=== PATIENT | female | born 1945 | race Caucasian/White ===

== ENCOUNTER 2023-08-28 20:19 | Inpatient (IN) ==
[2023-08-28 20:34] VITALS: BMI 24.4
--- NOTE | 2023-08-28 21:01 | DR.GIBLEED ---
HPI Time Seen Time Seen by Provider: 08/28/23 21:00 Primary Care Physician Primary Care Physician: JAZMIN Complaints Chief Complaint:: PATIENT BROUGHT IN TO ED BY SITTER C/O PASSING BLOOD AFTER ENEMA THIS EVENING. PT HAS HX HEMORRHOIDS AND HAS BEEN CONSTIPATED X 1 WEEK. SITTER STATES THEY HAVE TRIED LAXATIVES AND SUPPOSITORIES AND NOTHING HAS RELIEVED SYMPTOMS. PT HAS DEMENTIA AND IS CONFUSED IN TRIAGE. Self Treatment fo Chief Complaint: LAXATIVES, MILK OF MAG, SUPPOSITORY, ENEMA. COVID-19 Coronavirus risk:travel/contact w/high risk person: No Has patient experienced Coronavirus symptoms: No Source History Provided: Guardian and Other Mode of Arrival Mode of Arrival: Ambulatory Timing Onset of Chief Complaint: 08/28/23 Quality Vomitus: Bright Red Blood Stools: Bright Red Blood PMH PMH Past Medical History: Yes Past Medical History: Anemia, Anxiety, Dementia, Depression, Dyslipidemia, GERD, Hypertension, Hyperthyroidism, Kidney Stones and Renal Disease Past Surgical History: Yes Surgical History: Cholecystectomy, Hysterectomy, Ortho Surgery and Other Family History History of Family Medical Conditions: Yes Family Medical History: Diabetes Mellitus and Hypertension Social History Do you use any recreational Drugs:: No Lives With: Sitter Lives Where: Home Travel Risk Coronavirus risk:travel/contact w/high risk person: No Has patient experienced Coronavirus symptoms: No Infectious screening Have you traveled outside the country in the last 6 months?: No Isolation: Standard PE Vital Signs Vitals: Vital Signs Temperature 98.7 F Pulse Rate 74 Pulse Rate 73 Pulse Rate 75 Pulse Rate 77 Pulse Rate 73 Pulse Rate 73 Pulse Rate 72 Pulse Rate 68 Pulse Rate 72 Pulse Rate 69 Pulse Rate 75 Pulse Rate 82 Respiratory Rate 18 Respiratory Rate 18 Respiratory Rate 18 Blood Pressure 93/55 Blood Pressure 100/51 Blood Pressure 102/63 Blood Pressure 104/58 Blood Pressure 107/53 Blood Pressure 95/51 Blood Pressure 107/59 Blood Pressure 109/61 Blood Pressure 101/58 O2 Sat by Pulse Oximetry 97 O2 Sat by Pulse Oximetry 96 O2 Sat by Pulse Oximetry 96 O2 Sat by Pulse Oximetry 96 O2 Sat by Pulse Oximetry 99 O2 Sat by Pulse Oximetry 94 O2 Sat by Pulse Oximetry 97 O2 Sat by Pulse Oximetry 96 O2 Sat by Pulse Oximetry 94 O2 Sat by Pulse Oximetry 97 O2 Sat by Pulse Oximetry 90 O2 Sat by Pulse Oximetry 98 ROR Labs Reviewed 08/31/23 04:25 08/31/23 04:25 Laboratory: 08/28/23 23:20 Stool Stool Culture - Preliminary 08/28/23 23:20 Stool - Final WBC 9.0 X10^3/uL (3.6-10.0) 08/28/23 21:18 RBC 3.89 X10^6/uL (3.5-5.4) 08/28/23 21:18 Hgb 12.5 g/dL (12.0-16.0) 08/28/23 21:18 Hct 36.0 % (36.0-47.0) 08/28/23 21:18 MCV 92.7 fL (80.0-100.0) 08/28/23 21:18 MCH 32.1 pg (27.0-34.0) 08/28/23 21:18 MCHC 34.6 g/dL (33.0-35.0) 08/28/23 21:18 RDW 13.1 % (11.6-16.5) 08/28/23 21:18 Plt Count 171 X10^3/uL (150.0-450.0) 08/28/23 21:18 MPV 9.9 fL (7.4-11.0) 08/28/23 21:18 Neut % (Auto) 78.9 % (42.0-75.0) H 08/28/23 21:18 Lymph % (Auto) 13.2 % (21.0-51.0) L 08/28/23 21:18 [place] % (Auto) 7.2 % (0.0-13.0) 08/28/23 21:18 Eos % (Auto) 0.3 % (0.9-2.9) L 08/28/23 21:18 Baso % (Auto) 0.4 % (0.2-1.0) 08/28/23 21:18 Neut # (Auto) 7.1 x10^3/uL (2.2-4.8) H 08/28/23 21:18 Lymph # (Auto) 1.2 X10^3/uL (1.3-2.9) L 08/28/23 21:18 [place] # (Auto) 0.6 x10^3/uL (0.3-0.8) 08/28/23 21:18 Eos # (Auto) 0.0 x10^3/uL (0.0-0.2) 08/28/23 21:18 Baso # (Auto) 0.0 X10^3/uL (0.0-0.1) 08/28/23 21:18 Absolute Nucleated RBC 0.1 /100WBC 08/28/23 21:18 PT 20.0 SECONDS (11.8-14.3) 08/28/23 21:18 INR Target Range - 08/28/23 21:18 INR 1.74 (0.8-1.3) H 08/28/23 21:18 APTT 35.0 SECONDS (22.9-36.5) 08/28/23 21:18 PTT Comment - 08/28/23 21:18 Sodium 138 mmol/L (136-145) 08/28/23 21:18 Corrected Sodium TNP 08/28/23 21:18 Potassium 3.0 mmol/L (3.5-5.1) L 08/28/23 21:18 Chloride 100 mmol/L (98-107) 08/28/23 21:18 Carbon Dioxide 31.8 mmol/L (21-32) 08/28/23 21:18 BUN 16 mg/dL (7-18) 08/28/23 21:18 Creatinine 0.88 mg/dL (0.55-1.02) 08/28/23 21:18 Est GFR (MDRD) Af Amer > 60 (>60) 08/28/23 21:18 Est GFR (MDRD) Non-Af > 60 (>60) 08/28/23 21:18 Glucose 104 mg/dL (65-99) H 08/28/23 21:18 Calcium 8.6 mg/dL (8.5-10.1) 08/28/23 21:18 Corrected Calcium 9.8 mg/dL (8.5-10.1) 08/28/23 21:18 Total Bilirubin 0.80 mg/dL (0.2-1.0) 08/28/23 21:18 AST 16 Units/L (15-37) 08/28/23 21:18 ALT 15 Units/L (12-78) 08/28/23 21:18 Alkaline Phosphatase 110 Units/L (46-116) 08/28/23 21:18 Total Protein 5.6 g/dL (6.4-8.2) L 08/28/23 21:18 Albumin 2.5 g/dL (3.4-5.0) L 08/28/23 21:18 Globulin 3.1 g/dL (2.5-4.5) 08/28/23 21:18 Albumin/Globulin Ratio 0.8 Ratio (1.1-2.1) L 08/28/23 21:18 Amylase 8 Units/L (25-115) L 08/28/23 21:18 Lipase 39 Units/L (73-393) L 08/28/23 21:18 Specimen Type Catherized urine 08/28/23 22:15 Urine Color [place]ey[place] (YELLOW) 08/28/23 22:15 Urine Appearance Slightly hazy (CLEAR) 08/28/23 22:15 Urine pH 6.0 (5.0 - 8.0) 08/28/23 22:15 Ur Specific [place] 1.020 (1.000-1.030) 08/28/23 22:15 Urine Protein 2+ (NEGATIVE) 08/28/23 22:15 Urine Glucose (UA) Negative (NEGATIVE) 08/28/23 22:15 Urine Ketones Negative (NEGATIVE) 08/28/23 22:15 Urine Blood 5+ (NEGATIVE) 08/28/23 22:15 Urine Nitrite Negative (NEGATIVE) 08/28/23 22:15 Urine Bilirubin Negative (NEGATIVE) 08/28/23 22:15 Urine Urobilinogen Normal (NORMAL) 08/28/23 22:15 Ur Leukocyte Esterase 1+ (NEGATIVE) 08/28/23 22:15 Urine RBC Tntc /HPF (0-3) A 08/28/23 22:15 Urine WBC 0-2 /HPF (0-5) 08/28/23 22:15 Ur Squamous Epith Cells Rare /HPF (NEGATIVE) 08/28/23 22:15 Urine Bacteria Trace /HPF (NEGATIVE) 08/28/23 22:15 Ur Culture Indicated? No/not indicated 08/28/23 22:15 Stl Occult Blood (IFOB) Positive (NEGATIVE) A 08/28/23 23:20 Stool for White Cells Positive (NEGATIVE) A 08/28/23 23:20 Stl C. diff Tox B Gene Positive (NEGATIVE) A 08/28/23 23:20 Stl C. diff [id number] Presumptive negative (NEGATIVE) 08/28/23 23:20 C. difficile Toxin A&B Negative (NEGATIVE) 08/28/23 23:20 SARS-CoV-2 (PCR) Negative (NEGATIVE) 08/28/23 22:15 Cryptosporid parvum Ag Negative (NEGATIVE) 08/28/23 23:20 Giardia lamblia Ag Negative (NEGATIVE) 08/28/23 23:20 Influenza Type A (PCR) Negative (NEGATIVE) 08/28/23 22:15 Influenza Type B (PCR) Negative (NEGATIVE) 08/28/23 22:15 RSV (PCR) Negative (NEGATIVE) 08/28/23 22:15 Opioid Opioid Risk Tool Age (Ivan box if 16-45): No History of Preadolescent Sexual Abuse: No Total: 0 Total Score Risk Category: Low Risk Copyright: Yoshi FRANKLIN predicting aberrant behaviors Discharge Plan Discharge Plan Patient Disposition: 09 ADMITTED INPATIENT Condition: Stable
[2023-08-28] MEDS ORDERED: NS 1,000 ML IV 1,000 ML ONE (21:11)
[2023-08-28 21:28] LABS: BASOPHILS % (AUTO) 0.4 % (0.2-1.0); EOSINOPHILS % (AUTO) 0.3 % (0.9-2.9); HEMOGLOBIN 12.5 g/dL (12.0-16.0); LYMPHOCYTES # (AUTO) 1.2 X10^3/uL (1.3-2.9); LYMPHOCYTES % (AUTO) 13.2 % (21.0-51.0); MEAN CORPUSCULAR HEMOGLOBIN 32.1 pg (27.0-34.0); MEAN CORPUSCULAR HGB CONC 34.6 g/dL (33.0-35.0); MEAN CORPUSCULAR VOLUME 92.7 fL (80.0-100.0); MEAN PLATELET VOLUME 9.9 fL (7.4-11.0); MONOCYTES # (AUTO) 0.6 x10^3/uL (0.3-0.8); MONOCYTES % (AUTO) 7.2 % (0.0-13.0); NEUTROPHILS # (AUTO) 7.1 x10^3/uL (2.2-4.8); NEUTROPHILS % (AUTO) 78.9 % (42.0-75.0); PLATELET COUNT 171 X10^3/uL (150.0-450.0); RED BLOOD COUNT 3.89 X10^6/uL (3.5-5.4); RED CELL DISTRIBUTION WIDTH 13.1 % (11.6-16.5)
[2023-08-28] MEDS ORDERED: ZOFRAN INJ 4 MG VIAL IVP ONE (21:32)
[2023-08-28] MEDS ORDERED: MORPHINE SULFATE INJ 2 MG INJ IVP ONE (21:32)
[2023-08-28] MEDS: NS 1,000 ML IV 1,000 ML IV SCH (21:32)
[2023-08-28] MEDS ORDERED: MORPHINE SULFATE INJ 2 MG INJ ONE (21:34)
[2023-08-28] MEDS ORDERED: ZOFRAN INJ 4 MG VIAL ONE (21:34)
[2023-08-28 21:37] LABS: ALANINE AMINOTRANSFERASE 15 Units/L (12-78); ALBUMIN 2.5 g/dL (3.4-5.0); ALKALINE PHOSPHATASE 110 Units/L (46-116); AMYLASE 8 Units/L (25-115); ASPARTATE AMINO TRANSFERASE 16 Units/L (15-37); BLOOD UREA NITROGEN 16 mg/dL (7-18); CALCIUM 8.6 mg/dL (8.5-10.1); CARBON DIOXIDE 31.8 mmol/L (21-32); CHLORIDE 100 mmol/L (98-107); COR CA(FOR HYPOALB) 9.8 mg/dL (8.5-10.1); CREATININE 0.88 mg/dL (0.55-1.02); GLUCOSE 104 mg/dL (65-99); LIPASE 39 Units/L (73-393); SODIUM 138 mmol/L (136-145); TOTAL PROTEIN 5.6 g/dL (6.4-8.2); eGFR NON BLACK RACES > 60 (>60)
[2023-08-28 21:53] LABS: INR 1.74 (0.8-1.3)
[2023-08-28 22:30] LABS: BILIRUBIN,URINE NEGATIVE (NEGATIVE); BLOOD/HEMOGLOBIN,URINE 5+ (NEGATIVE); GLUCOSE, URINE NEGATIVE (NEGATIVE); KETONES,URINE NEGATIVE (NEGATIVE); LEUKOCYTE ESTERASE ,URINE 1+ (NEGATIVE); NITRITES,URINE NEGATIVE (NEGATIVE); PROTEIN,URINE 2+ (NEGATIVE); UROBILINOGEN,URINE NORMAL (NORMAL)
[2023-08-28 22:43] LABS: APPEARANCE,URINE SLIGHTLY HAZY (CLEAR); BACTERIA,URINE TRACE /HPF (NEGATIVE); COLOR,URINE AMBER (YELLOW); RBC,URINE TNTC /HPF (0-3); SQUAMOUS EPITHELIAL CELL,UR RARE /HPF (NEGATIVE)
--- NOTE | 2023-08-28 23:36 | CT ---
PROCEDURE: CT Abdomen and Pelvis without Contrast .HISTORY: Hematochezia and history of constipation for 1 week.TECHNIQUE: Axial images were performed through the abdomen and pelvis without the administration of IV contrast with multiplanar reformations . Oral contrast was not administered . Dose reduction techniques including Automated Exposure Control (AEC) and adjustment of mA and kV were utilized .COMPARISON: 06/10/2023.TECHNICAL QUALITY: Satisfactory .FINDINGS:Clear lung bases.Some punctate calcified granulomas in the liver. Spleen and adrenals are unremarkable. Some mild fatty replacement of the pancreas.4 mm proximal right ureter stone with mild hydroureteronephrosis. Subcentimeter nonobstructing caliceal stones both kidneys. Left renal cortical cyst.Previous cholecystectomy.No ascites or pneumoperitoneum.Mild atherosclerosis aorta.No lymphadenopathy.Mild feces throughout the colon with prominent mucosa with perirectal stranding suspicious for proctitis. No bowel obstruction. Appendix is not visualized. Mild colonic diverticulosis.Pelvis shows no masses or free fluid with previous hysterectomy. Urinary bladder collapsed around a Adkins catheter.Previous pinning of the left hip. No acute bony abnormality.IMPRESSION:1. Proximal right ureterolithiasis with mild hydroureteronephrosis.2. Bilateral nephrolithiasis.3. Proctitis and constipation.4. Mild colonic diverticulosis.Electronically signed by: Luis Garza (Aug 28, 2023 23:35:31)
[2023-08-29] MEDS ORDERED: K-DUR TAB 20 MEQ PO ONE ×2 (00:06→00:08)
[2023-08-29] MEDS ORDERED: FLAGYL IV PREMIX 500 MG BAG 500 MG/100 ML BAG IV ONE ×2 (00:20→00:27)
[2023-08-29 00:28] LABS: CRYPTOSPORIDIUM PARVUM ANTIGEN NEGATIVE (NEGATIVE); GIARDIA LAMBLIA ANTIGEN NEGATIVE (NEGATIVE)
[2023-08-29] MEDS ORDERED: PROTONIX INJ 40 MG VIAL IVP ONE (01:11)
[2023-08-29] MEDS ORDERED: PROTONIX INJ 40 MG VIAL ONE (01:13)
[2023-08-29] MEDS ORDERED: ZOFRAN INJ 4 MG VIAL IVP PRN (01:26)
[2023-08-29] MEDS: ZOSYN VIAL 3.375 GRAMS 3.375 G in NS 100 ML IV 100 ML IV SCH ×4 (02:38→21:45)
[2023-08-29] MEDS: FLAGYL IV PREMIX 500 MG BAG 500 MG/100 ML BAG IV SCH ×4 (02:39→20:29)
[2023-08-29 05:46] LABS: BASOPHILS % (AUTO) 0.4 % (0.2-1.0); EOSINOPHILS % (AUTO) 0.3 % (0.9-2.9); HEMOGLOBIN 11.5 g/dL (12.0-16.0); LYMPHOCYTES # (AUTO) 1.6 X10^3/uL (1.3-2.9); LYMPHOCYTES % (AUTO) 22.7 % (21.0-51.0); MEAN CORPUSCULAR HGB CONC 34.8 g/dL (33.0-35.0); MEAN CORPUSCULAR VOLUME 92.1 fL (80.0-100.0); MEAN PLATELET VOLUME 11.2 fL (7.4-11.0); MONOCYTES # (AUTO) 0.4 x10^3/uL (0.3-0.8); MONOCYTES % (AUTO) 5.8 % (0.0-13.0); NEUTROPHILS # (AUTO) 5.1 x10^3/uL (2.2-4.8); NEUTROPHILS % (AUTO) 70.8 % (42.0-75.0); PLATELET COUNT 160 X10^3/uL (150.0-450.0); RED BLOOD COUNT 3.58 X10^6/uL (3.5-5.4); RED CELL DISTRIBUTION WIDTH 12.9 % (11.6-16.5); WHITE BLOOD COUNT 7.2 X10^3/uL (3.6-10.0)
[2023-08-29 06:09] LABS: ALANINE AMINOTRANSFERASE 13 Units/L (12-78); ALBUMIN 2.1 g/dL (3.4-5.0); ALKALINE PHOSPHATASE 95 Units/L (46-116); ASPARTATE AMINO TRANSFERASE 14 Units/L (15-37); BLOOD UREA NITROGEN 12 mg/dL (7-18); CALCIUM 7.9 mg/dL (8.5-10.1); CARBON DIOXIDE 31.7 mmol/L (21-32); CHLORIDE 101 mmol/L (98-107); COR CA(FOR HYPOALB) 9.4 mg/dL (8.5-10.1); CREATININE 0.72 mg/dL (0.55-1.02); GLUCOSE 76 mg/dL (65-99); SODIUM 139 mmol/L (136-145); TOTAL PROTEIN 4.9 g/dL (6.4-8.2); eGFR NON BLACK RACES > 60 (>60)
[2023-08-29 06:12] LABS: POTASSIUM 2.7 mmol/L (3.5-5.1)
[2023-08-29] MEDS ORDERED: CONSULT PHARMACY - POTASSIUM & MAGNESIUM XX SCH (07:00)
[2023-08-29] MEDS ORDERED: ANTIVERT TAB 25 MG PO PRN (09:01)
[2023-08-29] MEDS: MORPHINE SULFATE INJ 2 MG INJ IVP PRN ×2 (09:30→15:07)
[2023-08-29] MEDS: K-DUR TAB 20 MEQ PO SCH ×3 (09:31→13:48)
[2023-08-29] MEDS: PROTONIX INJ 40 MG VIAL IVP SCH ×2 (09:43→21:08)
[2023-08-29] MEDS ORDERED: SUPREP BOWEL PREP KIT PO SCH (12:15)
[2023-08-29] MEDS: PERCOCET TAB 5/325 MG PO PRN ×2 (12:25→19:49)
[2023-08-29] MEDS: WELLBUTRIN XL 150 MG (DAILY) PO SCH (12:25)
[2023-08-29] MEDS: BUSPAR PO SCH ×3 (12:25→21:08)
[2023-08-29] MEDS: OXYBUTYNIN CHLORIDE ER PO SCH (12:30)
[2023-08-29] MEDS: ARICEPT TAB 5 MG PO SCH (12:31)
[2023-08-29] MEDS: BENTYL CAP 10 MG PO SCH ×3 (12:31→21:07)
[2023-08-29] MEDS: NS 1,000 ML IV 1,000 ML IV SCH (14:10)
[2023-08-29] MEDS: LIPITOR TAB 10 MG PO SCH (21:07)
[2023-08-29] MEDS: DESYREL PO SCH (21:07)
[2023-08-30] MEDS: NS 1,000 ML IV 1,000 ML IV SCH (02:58)
[2023-08-30] MEDS: FLAGYL IV PREMIX 500 MG BAG 500 MG/100 ML BAG IV SCH (02:58)
[2023-08-30] MEDS: ZOSYN VIAL 3.375 GRAMS 3.375 G in NS 100 ML IV 100 ML IV SCH ×3 (05:30→21:17)
[2023-08-30 05:32] LABS: BASOPHILS % (AUTO) 0.8 % (0.2-1.0); EOSINOPHILS % (AUTO) 0.2 % (0.9-2.9); HEMATOCRIT 31.7 % (36.0-47.0); HEMOGLOBIN 10.8 g/dL (12.0-16.0); LYMPHOCYTES # (AUTO) 1.3 X10^3/uL (1.3-2.9); LYMPHOCYTES % (AUTO) 25.8 % (21.0-51.0); MEAN CORPUSCULAR HEMOGLOBIN 31.7 pg (27.0-34.0); MEAN CORPUSCULAR HGB CONC 34.1 g/dL (33.0-35.0); MEAN CORPUSCULAR VOLUME 93.1 fL (80.0-100.0); MEAN PLATELET VOLUME 10.4 fL (7.4-11.0); MONOCYTES # (AUTO) 0.4 x10^3/uL (0.3-0.8); MONOCYTES % (AUTO) 7.4 % (0.0-13.0); NEUTROPHILS # (AUTO) 3.4 x10^3/uL (2.2-4.8); NEUTROPHILS % (AUTO) 65.8 % (42.0-75.0); PLATELET COUNT 151 X10^3/uL (150.0-450.0); RED BLOOD COUNT 3.41 X10^6/uL (3.5-5.4); RED CELL DISTRIBUTION WIDTH 13.1 % (11.6-16.5); WHITE BLOOD COUNT 5.1 X10^3/uL (3.6-10.0)
[2023-08-30 05:44] LABS: ALANINE AMINOTRANSFERASE 10 Units/L (12-78); ALBUMIN 1.8 g/dL (3.4-5.0); ALKALINE PHOSPHATASE 87 Units/L (46-116); ASPARTATE AMINO TRANSFERASE 14 Units/L (15-37); BLOOD UREA NITROGEN 11 mg/dL (7-18); CALCIUM 7.8 mg/dL (8.5-10.1); CARBON DIOXIDE 25.8 mmol/L (21-32); CHLORIDE 108 mmol/L (98-107); COR CA(FOR HYPOALB) 9.6 mg/dL (8.5-10.1); CREATININE 0.68 mg/dL (0.55-1.02); GLUCOSE 74 mg/dL (65-99); POTASSIUM 3.3 mmol/L (3.5-5.1); SODIUM 144 mmol/L (136-145); TOTAL PROTEIN 4.5 g/dL (6.4-8.2); eGFR NON BLACK RACES > 60 (>60)
[2023-08-30] MEDS: BENTYL CAP 10 MG PO SCH ×3 (06:35→21:17)
[2023-08-30] MEDS: BUSPAR PO SCH ×3 (06:35→21:16)
[2023-08-30] MEDS ORDERED: CONSULT PHARMACY - POTASSIUM & MAGNESIUM XX SCH (07:00)
[2023-08-30] MEDS ORDERED: K-DUR TAB 20 MEQ PO SCH (09:00)
[2023-08-30] MEDS ORDERED: NS 500 ML IV 500 ML IV ONE (09:07)
[2023-08-30] MEDS ORDERED: DIPRIVAN VIAL 20 ML ONE (09:16)
[2023-08-30] MEDS ORDERED: EPHEDRINE SULFATE INJ ONE (09:33)
[2023-08-30] MEDS: WELLBUTRIN XL 150 MG (DAILY) PO SCH (10:55)
[2023-08-30] MEDS: OXYBUTYNIN CHLORIDE ER PO SCH (10:56)
[2023-08-30] MEDS: PROTONIX INJ 40 MG VIAL IVP SCH ×2 (10:56→20:40)
[2023-08-30] MEDS: NS + KCL 20 MEQ/L 1,000 ML IV SCH ×2 (11:05→20:40)
[2023-08-30] MEDS: ARICEPT TAB 5 MG PO SCH (11:33)
[2023-08-30] MEDS: FLAGYL TAB 500 MG PO SCH ×2 (11:33→20:40)
--- NOTE | 2023-08-30 11:40 | DR.H&P ---
H&P - History & Physical for Day of: H&P Date: 08/29/23 - Chief Complaint Chief Complaint: PASSING BLOOD IN STOOL, ABDOMINAL PAIN - History of Present Illness History of Present Illness: IS A 78 YEAR OLD PATIENT OF OURS. SHE PRESENTED TO THE ER ON 08/28 WITH COMPLAINTS OF PASSING BRIGHT RED BLOOD AFTER RECEIVING AN ENEMA. PATIENTS CAREGIVER REPORTS THAT PATIENT HAS A HISTORY OF HEMORRHOIDS AND HAS BEEN CONSTIPATED FOR THE PAST WEEK. THE SITTER REPORTS THAT THEY HAVE TRIED LAXATIVES AND SUPPOSITORIES AND NOTHING HAS RELIEVED THE SYMPTOMS. PATIENT WAS NOTED TO BE CONFUSED, BUT DID ADMIT TO DIFFUSE ABDOMINAL PAIN. PATIENT WAS SEEN IN THE ER A FEW WEEKS AGO WITH NAUSEA, VOMITING, AND DIARRHEA, BUT THERE WAS NO BLEEDING NOTED AT THE TIME. HER PMH INCLUDES: ANEMIA, ANXIETY, DEMENTIA, DEPRESSION, DYSLIPIDEMIA, GERD, HTN, HYPERTHYROIDISM, KIDNEY STONES, RENAL DISEASE, CHOLECYSTECTOMY, HYSTERECTOMY, AND ORTHOPEDIC SURGERY. ON ARRIVAL TO THE HOSPITAL, HER VITALS WERE: 98.7-82-18-98%-101/58. LABS WERE OBTAINED. WBC 9.0, RBC 3.89, HGB 12.5, HCT 36.0, PLT COUNT 171, INR 1.74, SODIUM 138, POTASSIUM 3.0, CHLORIDE 100, CARBON DIOXIDE 31.8, BUN 16, CREATININE 0.88, GLUCOSE 104, CALCIUM 8.6, TOTAL BILI 0.80, AST 16, ALT 15, ALK PHOS 110, TOTAL PROTEIN 5.6, ALBUMIN 2.5, AMYLASE 8, LIPASE 39. A URINALYSIS WAS OBTAINED AND REVEALED: WBC 0-2, RBC TNTC, LEUKOCYTES 1+, BACTERIA TRACE, BLOOD 5+. STOOL WAS POSITIVE FOR BLOOD, WHITE CELLS, AND C.DIFF TOX B GENE. A STOOL CULTURE WAS SET UP. AN ABDOMEN/PELVIS CT WITHOUT CONTRAST WAS OBTAINED AND REVEALED: 1. Proximal right ureterolithiasis with mild hydroureteronephrosis. 2. Bilateral nephrolithiasis. 3. Proctitis and constipation. 4. Mild colonic diverticulosis. IN THE ER, SHE WAS GIVEN MORPHINE 2MG IV X 1, ZOFRAN 4MG IV X 1, K-DUR 20MEQ PO X 1, FLAGYL 500MG IV X 1, AND PROTONIX 40MG IV X 1. SHE WAS ADMITTED TO THE HOSPITAL FOR FURTHER EVALUATION AND TREATMENT OF PROCTITIS, GI BLEED, ABDOMINAL PAIN. SHE WAS STARTED ON NORMAL SALINE WITH POTASSIUM AT 50 ML/HR, ZOSYN 3.375G IV TID, FLAGYL 500MG IV Q6H, ZOFRAN 4MG IV Q6H PRN, PROTONIX 40MG IV BID, MORPHINE 2MG IV Q6H PRN. HER HOME MEDICATIONS OF LIPITOR, WELLBUTRIN, BUSPAR, BENTYL, ARICEPT, ANTIVERT PRN, OXYBUTYNIN, PERCOCET, AND DESYREL WERE RESUMED. WE WILL CONSULT , GENERAL SURGEON, DUE TO CT FINDINGS. OTHERWISE, WE WILL FOLLOW UP WITH AM LABS AND CONTINUE TO MONITOR. TIME SPENT ON CLINICAL ASSESSMENT, REVIEWING LABS AND IMAGING, DECISION MAKING, AND DOCUMENTATION GREATER THAN 75 MINUTES. - Past Medical History Past Medical History: Hypertension, Dyslipidemia, Renal Disease, Dementia, Depression, Anxiety, Hyperthyroidism, Anemia, GERD, Kidney Stones - Past Surgical History Surgical History: Cholecystectomy, Hysterectomy, Ortho Surgery - Family History Family Medical History: ME, Sudden Cardiac - Social History Does patient currently use any type of tobacco product: No Have you used tobacco products in the last 12 months: No Type of Tobacco Use: None Alcohol Use: None Drug Use: None - Review of Systems Constitutional: Weakness Eyes: No Symptoms Reported ENT: No Symptoms Reported Respiratory: No Symptoms Reported Cardiovascular: No Symptoms Reported Gastrointestinal: Nausea, Abdominal Pain, Constipation, Hematochezia Genitourinary: No Symptoms Reported Musculoskeletal: No Symptoms Reported Skin: No Symptoms Reported Neurological: Weakness - Physical Exam Vital Signs: Vital Signs Temperature 97.3 F Temperature 97.8 F Temperature 97.8 F Pulse Rate [Left Brachial] 81 Pulse Rate [Left Brachial] 92 Pulse Rate [Left Brachial] 94 Pulse Rate [Left Brachial] 82 Pulse Rate [Left Brachial] 82 Pulse Rate [Left Brachial] 75 Pulse Rate [Left Brachial] 80 Respiratory Rate 22 Respiratory Rate 20 Respiratory Rate 24 Respiratory Rate 18 Respiratory Rate 23 Respiratory Rate 18 Respiratory Rate 16 Blood Pressure [Left Arm] 114/56 Blood Pressure [Left Arm] 111/57 Blood Pressure [Left Arm] 100/58 Blood Pressure [Left Arm] 125/58 Blood Pressure [Left Arm] 104/57 Blood Pressure [Left Arm] 122/58 Blood Pressure [Left Arm] 96/53 O2 Sat by Pulse Oximetry 100 O2 Sat by Pulse Oximetry 100 O2 Sat by Pulse Oximetry 96 O2 Sat by Pulse Oximetry 97 O2 Sat by Pulse Oximetry 94 O2 Sat by Pulse Oximetry 97 O2 Sat by Pulse Oximetry 94 Oriented: Normal Eyes: Normal Ear: Normal Nose: Normal Throat: Normal Respiratory: Clear Throughout Cardiovascular: Normal : Normal Auscultation: Bowel Sounds: Normal Palpation: Normal Tenderness: Diffuse Skin: Normal Musculoskeletal: Normal Psychiatric: Normal Mood Description: Calm Affect: Normal Speech Pattern: Clear - Assessment/Plan (1) Proctitis Status: Acute Plan: ADMIT, NORMAL SALINE WITH POTASSIUM AT 50 ML/HR, ZOSYN 3.375G IV TID, FLAGYL 500MG IV Q6H, ZOFRAN 4MG IV Q6H PRN, PROTONIX 40MG IV BID, MORPHINE 2MG IV Q6H PRN. CONSULT GENERAL SURGERY, RESUME HOME MEDS (2) GI bleed Qualifiers: GI bleed type/associated pathology: unspecified gastrointestinal hemorrhage type Qualified Code(s): K92.2 - Gastrointestinal hemorrhage, unspecified Status: Acute (3) Abdominal pain Qualifiers: Abdominal location: generalized Qualified Code(s): R10.84 - Generalized abdominal pain Status: Acute (4) Nausea Status: Acute (5) HTN (hypertension) Qualifiers: Hypertension type: primary hypertension Qualified Code(s): I10 - Essential (primary) hypertension Status: Chronic Plan: MONITOR (6) Dementia Qualifiers: Dementia type: unspecified type Dementia severity: unspecified severity Dementia behavioral or psychological symptom: unspecified whether behavioral, psychotic, or mood disturbance or anxiety Qualified Code(s): F03.90 - Unspecified dementia, unspecified severity, without behavioral disturbance, psychotic disturbance, mood disturbance, and anxiety Status: Chronic Plan: RESUME ARICEPT (7) GERD (gastroesophageal reflux disease) Qualifiers: Esophagitis presence: esophagitis presence not specified Qualified Code(s): K21.9 - Gastro-esophageal reflux disease without esophagitis Status: Chronic Plan: CONTINUE PROTONIX (8) Dyslipidemia Status: Chronic Plan: RESUME LIPITOR - Allergies Allergies/Adverse Reactions: Allergies Allergy/AdvReac Type Severity Reaction Status Date / Time codeine Allergy Verified 08/11/23 09:50 lorazepam [From Ativan] Allergy Verified 08/28/23 20:56 - Medications Home Medications: Home Medications Medication Instructions Recorded Confirmed atorvastatin 10 mg tablet 10 mg PO HS 03/25/23 08/28/23 metoprolol succinate 25 mg 25 mg PO QDAY 03/25/23 08/28/23 tablet,extended release 24 hr oxycodone-acetaminophen 10 mg-325 1 tab PO QID PRN 03/25/23 08/28/23 mg tablet pantoprazole 40 mg tablet,delayed 40 mg PO BID 03/25/23 08/28/23 release apixaban 5 mg tablet (Eliquis) 5 mg PO BID 08/11/23 08/28/23 bupropion HCl 150 mg 24 hr tablet, 150 mg PO QAM 08/11/23 08/28/23 extended release buspirone 10 mg tablet 10 mg PO TID 08/11/23 08/28/23 donepezil 5 mg tablet 5 mg PO QDAY 08/11/23 08/28/23 oxybutynin chloride 10 mg 10 mg PO QDAY 08/11/23 08/28/23 tablet,extended release 24 hr dicyclomine 10 mg capsule 10 mg PO TID 08/28/23 08/28/23 meclizine 25 mg tablet 25 mg PO BID PRN 08/28/23 08/28/23 trazodone 50 mg tablet 50 mg PO QPM 08/28/23 08/28/23 Previous Rx's Medication Instructions Recorded ondansetron 4 mg disintegrating 4 mg PO Q8H PRN nausea and 08/11/23 tablet vomiting #14 tabs
--- NOTE | 2023-08-30 13:15 | PCM.PROG ---
Progress Note - Progress Note for Day of Date of Exam: 08/30/23 - Subjective Subjective: IS CURRENTLY INPATIENT STATUS FOR TREATMENT OF PROCTITIS, GI BLEED, AND ABDOMINAL PAIN. SHE HAS A PMH OF ANEMIA, ANXIETY, DEMENTIA, DEPRESSION, DYSLIPIDEMIA, GERD, HTN, HYPERTHYROIDISM, KIDNEY STONES, RENAL DISEASE, CHOLECYSTECTOMY, HYSTERECTOMY, AND ORTHOPEDIC SURGERY. TODAY, SHE IS ALERT, SITTING UP IN BED ON MORNING ROUNDS. SHE CONTINUES TO COMPLAIN OF DIFFUSE ABDOMINAL PAIN AND OCCASIONAL NAUSEA, BUT REPORTS SLIGHT IMPROVEMENT IN SYMPTOMS SINCE ADMISSION. ON EXAMINATION, HEART IS REGULAR IN RATE AND RHYTHM. BILATERAL LUNGS ARE CLEAR TO AUSCULTATION. ABDOMEN IS ROUND, SOFT, AND NOTED WITH DIFFUSE TENDERNESS. NORMAL BOWEL SOUNDS ARE NOTED IN ALL QUADRANTS. CRUM CATHETER IS NOTED TO BEDSIDE DRAINAGE. GOOD RANGE OF MOTION NOTED TO UPPER AND LOWER EXTREMITIES WITH NO EDEMA NOTED. HER VITALS THIS MORNING ARE: 97.8-82-23-94%-104/57. LABS WERE OBTAINED. WBC 5.1, RBC 3.41, HGB 10.8, HCT 31.7, PLT COUNT 151, SODIUM 144, POTASSIUM 3.3, CHLORIDE 108, BUN 11, CREATININE 0.68, GLUCOSE 74, CALCIUM 7.8, MAGNESIUM 2.0, AST 14, ALT 10, ALK PHOS 87, TOTAL PROTEIN 4.5, ALBUMIN 1.8. STOOL CULTURE IS PENDING. HAS CONSULTED WITH PATIENT AND PLANS FOR A COLONOSCOPY THIS MORNING. WE ARE IN AGREEMENT WITH PLANS. SHE IS CURRENTLY RECEIVING NORMAL SALINE WITH POTASSIUM AT 50 ML/HR, ZOSYN 3.375G IV TID, FLAGYL 500MG IV Q6H, ZOFRAN 4MG IV Q6H PRN, PROTONIX 40MG IV BID, MORPHINE 2MG IV Q6H PRN. HER HOME MEDICATIONS OF LIPITOR, WELLBUTRIN, BUSPAR, BENTYL, ARICEPT, ANTIVERT PRN, OXYBUTYNIN, PERCOCET, AND DESYREL WERE RESUMED. WE WILL CONTINUE CURRENT PLAN OF CARE TODAY. OTHERWISE, WE WILL FOLLOW UP WITH AM LABS AND CONTINUE TO MONITOR. TIME SPENT ON CLINICAL ASSESSMENT, R EVIEWING LABS AND IMAGING, DECISION MAKING, AND DOCUMENTATION GREATER THAN 45 MINUTES. - Past Medical Family Social History Past Med/Fam/Surg Hx: No changes since H&P Allergies: Allergies codeine Allergy (Verified 08/11/23 09:50) lorazepam [From Ativan] Allergy (Verified 08/28/23 20:56) - Review of Systems ROS: No change since H&P - Vital Signs and I&O's Vital Signs: Vital Signs Temperature 97.4 F Temperature 97.4 F Temperature 97.3 F Temperature 97.8 F Pulse Rate [Left Brachial] 84 Pulse Rate [Left Brachial] 86 Pulse Rate [Left Brachial] 81 Pulse Rate [Left Brachial] 92 Pulse Rate [Left Brachial] 94 Pulse Rate [Left Brachial] 82 Pulse Rate [Left Brachial] 82 Pulse Rate [Left Brachial] 75 Respiratory Rate 29 Respiratory Rate 25 Respiratory Rate 22 Respiratory Rate 20 Respiratory Rate 24 Respiratory Rate 18 Respiratory Rate 23 Respiratory Rate 18 Blood Pressure [Left Arm] 118/56 Blood Pressure [Left Arm] 116/57 Blood Pressure [Left Arm] 114/56 Blood Pressure [Left Arm] 111/57 Blood Pressure [Left Arm] 100/58 Blood Pressure [Left Arm] 125/58 Blood Pressure [Left Arm] 104/57 Blood Pressure [Left Arm] 122/58 O2 Sat by Pulse Oximetry 100 O2 Sat by Pulse Oximetry 100 O2 Sat by Pulse Oximetry 100 O2 Sat by Pulse Oximetry 100 O2 Sat by Pulse Oximetry 96 O2 Sat by Pulse Oximetry 97 O2 Sat by Pulse Oximetry 94 O2 Sat by Pulse Oximetry 97 Intake and Output: Intake & Output 08/28/23 08/29/23 08/30/23 08/31/23 11:59 11:59 11:59 11:59 Intake Total 282 / 282 3348 / 3348 Output Total 625 / 625 1220 / 1220 Balance -343 / -343 2127 - Physical Exam Oriented: Normal Eyes: Normal Ear: Normal Nose: Normal Throat: Normal Respiratory: Normal Cardiovascular: Normal : Normal Auscultation: Bowel Sounds: Normal Palpation: Normal Tenderness: Diffuse Skin: Normal Musculoskeletal: Normal Psychiatric: Normal Mood Description: Calm Affect: Normal Speech Pattern: Clear - Laboratory and Diagnostics Result Diagrams: 08/30/23 05:05 08/30/23 05:05 Labs: 08/28/23 23:20 Stool Stool Culture - Preliminary 08/28/23 23:20 Stool - Final Laboratory WBC 5.1 X10^3/uL (3.6-10.0) 08/30/23 05:05 RBC 3.41 X10^6/uL (3.5-5.4) L 08/30/23 05:05 Hgb 10.8 g/dL (12.0-16.0) L 08/30/23 05:05 Hct 31.7 % (36.0-47.0) L 08/30/23 05:05 MCV 93.1 fL (80.0-100.0) 08/30/23 05:05 MCH 31.7 pg (27.0-34.0) 08/30/23 05:05 MCHC 34.1 g/dL (33.0-35.0) 08/30/23 05:05 RDW 13.1 % (11.6-16.5) 08/30/23 05:05 Plt Count 151 X10^3/uL (150.0-450.0) 08/30/23 05:05 MPV 10.4 fL (7.4-11.0) 08/30/23 05:05 Neut % (Auto) 65.8 % (42.0-75.0) 08/30/23 05:05 Lymph % (Auto) 25.8 % (21.0-51.0) 08/30/23 05:05 [facility] % (Auto) 7.4 % (0.0-13.0) 08/30/23 05:05 Eos % (Auto) 0.2 % (0.9-2.9) L 08/30/23 05:05 Baso % (Auto) 0.8 % (0.2-1.0) 08/30/23 05:05 Neut # (Auto) 3.4 x10^3/uL (2.2-4.8) 08/30/23 05:05 Lymph # (Auto) 1.3 X10^3/uL (1.3-2.9) 08/30/23 05:05 [facility] # (Auto) 0.4 x10^3/uL (0.3-0.8) 08/30/23 05:05 Eos # (Auto) 0.0 x10^3/uL (0.0-0.2) 08/30/23 05:05 Baso # (Auto) 0.0 X10^3/uL (0.0-0.1) 08/30/23 05:05 Absolute Nucleated RBC 0.0 /100WBC 08/30/23 05:05 PT 20.0 SECONDS (11.8-14.3) 08/28/23 21:18 INR Target Range - 08/28/23 21:18 INR 1.74 (0.8-1.3) H 08/28/23 21:18 APTT 35.0 SECONDS (22.9-36.5) 08/28/23 21:18 PTT Comment - 08/28/23 21:18 Sodium 144 mmol/L (136-145) 08/30/23 05:05 Corrected Sodium TNP 08/30/23 05:05 Potassium 3.3 mmol/L (3.5-5.1) L 08/30/23 05:05 Chloride 108 mmol/L (98-107) H 08/30/23 05:05 Carbon Dioxide 25.8 mmol/L (21-32) 08/30/23 05:05 BUN 11 mg/dL (7-18) 08/30/23 05:05 Creatinine 0.68 mg/dL (0.55-1.02) 08/30/23 05:05 Est GFR (MDRD) Af Amer > 60 (>60) 08/30/23 05:05 Est GFR (MDRD) Non-Af > 60 (>60) 08/30/23 05:05 Glucose 74 mg/dL (65-99) 08/30/23 05:05 Calcium 7.8 mg/dL (8.5-10.1) L 08/30/23 05:05 Corrected Calcium 9.6 mg/dL (8.5-10.1) 08/30/23 05:05 Magnesium 2.0 mg/dL (2.0-2.9) 08/30/23 05:05 Total Bilirubin 0.60 mg/dL (0.2-1.0) 08/30/23 05:05 AST 14 Units/L (15-37) L 08/30/23 05:05 ALT 10 Units/L (12-78) L 08/30/23 05:05 Alkaline Phosphatase 87 Units/L (46-116) 08/30/23 05:05 Total Protein 4.5 g/dL (6.4-8.2) L 08/30/23 05:05 Albumin 1.8 g/dL (3.4-5.0) L 08/30/23 05:05 Globulin 2.7 g/dL (2.5-4.5) 08/30/23 05:05 Albumin/Globulin Ratio 0.7 Ratio (1.1-2.1) L 08/30/23 05:05 Amylase 8 Units/L (25-115) L 08/28/23 21:18 Lipase 39 Units/L (73-393) L 08/28/23 21:18 Specimen Type Catherized urine 08/28/23 22:15 Urine Color [place] (YELLOW) 08/28/23 22:15 Urine Appearance Slightly hazy (CLEAR) 08/28/23 22:15 Urine pH 6.0 (5.0 - 8.0) 08/28/23 22:15 Ur Specific [place] 1.020 (1.000-1.030) 08/28/23 22:15 Urine Protein 2+ (NEGATIVE) 08/28/23 22:15 Urine Glucose (UA) Negative (NEGATIVE) 08/28/23 22:15 Urine Ketones Negative (NEGATIVE) 08/28/23 22:15 Urine Blood 5+ (NEGATIVE) 08/28/23 22:15 Urine Nitrite Negative (NEGATIVE) 08/28/23 22:15 Urine Bilirubin Negative (NEGATIVE) 08/28/23 22:15 Urine Urobilinogen Normal (NORMAL) 08/28/23 22:15 Ur Leukocyte Esterase 1+ (NEGATIVE) 08/28/23 22:15 Urine RBC Tntc /HPF (0-3) A 08/28/23 22:15 Urine WBC 0-2 /HPF (0-5) 08/28/23 22:15 Ur Squamous Epith Cells Rare /HPF (NEGATIVE) 08/28/23 22:15 Urine Bacteria Trace /HPF (NEGATIVE) 08/28/23 22:15 Ur Culture Indicated? No/not indicated 08/28/23 22:15 Stl Occult Blood (IFOB) Positive (NEGATIVE) A 08/28/23 23:20 Stool for White Cells Positive (NEGATIVE) A 08/28/23 23:20 Stl C. diff Tox B Gene Positive (NEGATIVE) A 08/30/23 09:35 Stl C. diff [id number] Presumptive negative (NEGATIVE) 08/30/23 09:35 C. difficile Toxin A&B Negative (NEGATIVE) 08/28/23 23:20 SARS-CoV-2 (PCR) Negative (NEGATIVE) 08/28/23 22:15 Cryptosporid parvum Ag Negative (NEGATIVE) 08/28/23 23:20 Giardia lamblia Ag Negative (NEGATIVE) 08/28/23 23:20 Influenza Type A (PCR) Negative (NEGATIVE) 08/28/23 22:15 Influenza Type B (PCR) Negative (NEGATIVE) 08/28/23 22:15 RSV (PCR) Negative (NEGATIVE) 08/28/23 22:15 - Plan (1) Proctitis Status: Acute Plan: NORMAL SALINE WITH POTASSIUM AT 50 ML/HR, ZOSYN 3.375G IV TID, FLAGYL 500MG IV Q6H, ZOFRAN 4MG IV Q6H PRN, PROTONIX 40MG IV BID, MORPHINE 2MG IV Q6H PRN. CONSULT GENERAL SURGERY, RESUME HOME MEDS (2) GI bleed Status: Acute Qualifiers: GI bleed type/associated pathology: unspecified gastrointestinal hemorrhage type Qualified Code(s): K92.2 - Gastrointestinal hemorrhage, unspecified (3) Abdominal pain Status: Acute Qualifiers: Abdominal location: generalized Qualified Code(s): R10.84 - Generalized abdominal pain (4) Nausea Status: Acute (5) HTN (hypertension) Status: Chronic Qualifiers: Hypertension type: primary hypertension Qualified Code(s): I10 - Essential (primary) hypertension Plan: MONITOR (6) Dementia Status: Chronic Qualifiers: Dementia type: unspecified type Dementia severity: unspecified severity Dementia behavioral or psychological symptom: unspecified whether behavioral, psychotic, or mood disturbance or anxiety Qualified Code(s): F03.90 - Unspecified dementia, unspecified severity, without behavioral disturbance, psychotic disturbance, mood disturbance, and anxiety Plan: RESUME ARICEPT (7) GERD (gastroesophageal reflux disease) Status: Chronic Qualifiers: Esophagitis presence: esophagitis presence not specified Qualified Code(s): K21.9 - Gastro-esophageal reflux disease without esophagitis Plan: CONTINUE PROTONIX (8) Dyslipidemia Status: Chronic Plan: RESUME LIPITOR
[2023-08-30] MEDS: VISTARIL PO PRN (17:38)
[2023-08-30] MEDS: LIPITOR TAB 10 MG PO SCH (20:40)
[2023-08-30] MEDS: DESYREL PO SCH (20:40)
[2023-08-31] MEDS: VISTARIL PO PRN ×2 (01:35→21:28)
[2023-08-31] MEDS: FLAGYL TAB 500 MG PO SCH ×3 (01:35→17:51)
[2023-08-31] MEDS: BUSPAR PO SCH ×3 (05:20→21:28)
[2023-08-31] MEDS: BENTYL CAP 10 MG PO SCH ×3 (05:20→21:28)
[2023-08-31] MEDS: ZOSYN VIAL 3.375 GRAMS 3.375 G in NS 100 ML IV 100 ML IV SCH ×3 (05:20→21:28)
[2023-08-31 05:31] LABS: BASOPHILS % (AUTO) 0.5 % (0.2-1.0); EOSINOPHILS % (AUTO) 0.5 % (0.9-2.9); HEMATOCRIT 31.5 % (36.0-47.0); HEMOGLOBIN 10.8 g/dL (12.0-16.0); LYMPHOCYTES # (AUTO) 1.8 X10^3/uL (1.3-2.9); LYMPHOCYTES % (AUTO) 41.9 % (21.0-51.0); MEAN CORPUSCULAR HEMOGLOBIN 32.3 pg (27.0-34.0); MEAN CORPUSCULAR HGB CONC 34.1 g/dL (33.0-35.0); MEAN CORPUSCULAR VOLUME 94.6 fL (80.0-100.0); MEAN PLATELET VOLUME 10.2 fL (7.4-11.0); MONOCYTES # (AUTO) 0.3 x10^3/uL (0.3-0.8); NEUTROPHILS # (AUTO) 2.2 x10^3/uL (2.2-4.8); NEUTROPHILS % (AUTO) 51.1 % (42.0-75.0); PLATELET COUNT 176 X10^3/uL (150.0-450.0); RED BLOOD COUNT 3.33 X10^6/uL (3.5-5.4); RED CELL DISTRIBUTION WIDTH 13.3 % (11.6-16.5); WHITE BLOOD COUNT 4.2 X10^3/uL (3.6-10.0)
[2023-08-31 05:52] LABS: ALANINE AMINOTRANSFERASE 9 Units/L (12-78); ALBUMIN 1.8 g/dL (3.4-5.0); ALKALINE PHOSPHATASE 78 Units/L (46-116); ASPARTATE AMINO TRANSFERASE 11 Units/L (15-37); BLOOD UREA NITROGEN 9 mg/dL (7-18); CALCIUM 7.6 mg/dL (8.5-10.1); CARBON DIOXIDE 28.6 mmol/L (21-32); CHLORIDE 108 mmol/L (98-107); COR CA(FOR HYPOALB) 9.4 mg/dL (8.5-10.1); GLUCOSE 82 mg/dL (65-99); SODIUM 143 mmol/L (136-145); TOTAL PROTEIN 4.4 g/dL (6.4-8.2); eGFR NON BLACK RACES > 60 (>60)
[2023-08-31 05:55] LABS: POTASSIUM 2.8 mmol/L (3.5-5.1)
[2023-08-31] MEDS ORDERED: CONSULT PHARMACY - POTASSIUM & MAGNESIUM XX SCH (07:00)
[2023-08-31] MEDS: OXYBUTYNIN CHLORIDE ER PO SCH (09:45)
[2023-08-31] MEDS: WELLBUTRIN XL 150 MG (DAILY) PO SCH (09:45)
[2023-08-31] MEDS: ARICEPT TAB 5 MG PO SCH (09:45)
[2023-08-31] MEDS: K-DUR TAB 20 MEQ PO SCH ×3 (09:45→13:27)
[2023-08-31] MEDS: PROTONIX INJ 40 MG VIAL IVP SCH ×2 (09:46→20:23)
[2023-08-31] MEDS: NS + KCL 20 MEQ/L 1,000 ML IV SCH (11:27)
--- NOTE | 2023-08-31 13:22 | PCM.PROG ---
Progress Note - Progress Note for Day of Date of Exam: 08/31/23 - Subjective Subjective: IS CURRENTLY INPATIENT STATUS FOR TREATMENT OF PROCTITIS, GI BLEED, AND ABDOMINAL PAIN. SHE HAS A PMH OF ANEMIA, ANXIETY, DEMENTIA, DEPRESSION, DYSLIPIDEMIA, GERD, HTN, HYPERTHYROIDISM, KIDNEY STONES, RENAL DISEASE, CHOLECYSTECTOMY, HYSTERECTOMY, AND ORTHOPEDIC SURGERY. TODAY, SHE IS ALERT AND ORIENTED, LYING IN BED ON MORNING ROUNDS. SHE CONTINUES TO COMPLAIN OF DIFFUSE ABDOMINAL PAIN AND OCCASIONAL NAUSEA, BUT REPORTS SLIGHT IMPROVEMENT IN SYMPTOMS SINCE YESTERDAY. ON EXAMINATION, HEART IS REGULAR IN RATE AND RHYTHM. BILATERAL LUNGS ARE CLEAR TO AUSCULTATION. ABDOMEN IS ROUND, SOFT, AND NOTED WITH DIFFUSE TENDERNESS. NORMAL BOWEL SOUNDS ARE NOTED IN ALL QUADRANTS. CRUM CATHETER IS NOTED TO BEDSIDE DRAINAGE. GOOD RANGE OF MOTION NOTED TO UPPER AND LOWER EXTREMITIES WITH NO EDEMA NOTED. HER VITALS THIS MORNING ARE: 98.4-80-13-94%-119/58. LABS WERE OBTAINED. WBC 4.2, RBC 3.33, HGB 10.8, HCT 31.5, PLT COUNT 176, SODIUM 143, POTASSIUM 2.8, CHLORIDE 108, BUN 9, CREATININE 0.70, GLUCOSE 82, CALCIUM 7.6, TOTAL BILI 0.40, AST 11, ALT 9, ALK PHOS 78, TOTAL PROTEIN 4.4, ALBUMIN 1.8. PERFORMED A COLONOSCOPY YESTERDAY. POSTOPERATIVE DIGNOSES INCLUDE: 1. Extensive diverticulosis of the sigmoid colon and rectosigmoid. 2. Colitis with hemorrhagic appearance of the cecum and ascending colon with only mild oozing. No active bleeding. No evidence of neoplasm, obstruction, or inflammatory bowel disease. SHE IS CURRENTLY RECEIVING NORMAL SALINE WITH POTASSIUM AT 50 ML/HR, ZOSYN 3.375G IV TID, FLAGYL 500MG PO Q8H, ZOFRAN 4MG IV Q6H PRN, PROTONIX 40MG IV BID, [place] 25MG PO Q8H PRN, MORPHINE 2MG IV Q6H PRN. HER HOME MEDICATIONS OF LIPITOR, WELLBUTRIN, BUSPAR, BENTYL, ARICEPT, ANTIVERT PRN, OXYBUTYNIN, AND PERCOCET WERE RESUMED. WE WILL CONTINUE CURRENT PLAN OF CARE TODAY. OTHERWISE, WE WILL FOLLOW UP WITH AM LABS AND CONTINUE TO MONITOR. TIME SPENT ON CLINICAL ASSESSMENT, REVIEWING LABS AND IMAGING, DECISION MAKING, AND DOCUMENTATION GREATER THAN 45 MINUTES. - Past Medical Family Social History Past Med/Fam/Surg Hx: No changes since H&P Allergies: Allergies codeine Allergy (Verified 08/11/23 09:50) lorazepam [From Ativan] Allergy (Verified 08/28/23 20:56) - Review of Systems ROS: No change since H&P - Vital Signs and I&O's Vital Signs: Vital Signs Temperature 97.3 F Temperature 98.4 F Pulse Rate [Left Brachial] 89 Pulse Rate [Left Brachial] 89 Pulse Rate [Left Brachial] 82 Pulse Rate [Left Brachial] 78 Pulse Rate [Left Brachial] 78 Pulse Rate [Left Brachial] 80 Pulse Rate [Left Brachial] 91 Pulse Rate [Left Brachial] 84 Respiratory Rate 25 Respiratory Rate 20 Respiratory Rate 16 Respiratory Rate 18 Respiratory Rate 18 Respiratory Rate 13 Respiratory Rate 21 Respiratory Rate 20 Blood Pressure [Left Arm] 121/60 Blood Pressure [Left Arm] 117/59 Blood Pressure [Left Arm] 118/57 Blood Pressure [Left Arm] 136/61 Blood Pressure [Left Arm] 102/56 Blood Pressure [Left Arm] 119/58 Blood Pressure [Left Arm] 114/58 Blood Pressure [Left Arm] 116/60 O2 Sat by Pulse Oximetry 96 O2 Sat by Pulse Oximetry 94 O2 Sat by Pulse Oximetry 96 O2 Sat by Pulse Oximetry 99 O2 Sat by Pulse Oximetry 95 O2 Sat by Pulse Oximetry 94 O2 Sat by Pulse Oximetry 95 O2 Sat by Pulse Oximetry 96 Intake and Output: Intake & Output 08/29/23 08/30/23 08/31/23 09/01/23 11:59 11:59 11:59 11:59 Intake Total 282 / 282 3348 / 3348 2887 / 2887 Output Total 625 / 625 1220 / 1220 200 / 200 Balance -343 / -343 2128 / 2128 2687 / 2687 - Physical Exam Oriented: Normal Eyes: Normal Ear: Normal Nose: Normal Throat: Normal Respiratory: Normal Cardiovascular: Normal : Normal Auscultation: Bowel Sounds: Normal Tenderness: Diffuse Skin: Normal Musculoskeletal: Normal Psychiatric: Normal Mood Description: Calm Affect: Normal Speech Pattern: Clear, Appropriate - Laboratory and Diagnostics Result Diagrams: 08/31/23 04:25 08/31/23 04:25 Labs: 08/28/23 23:20 Stool Stool Culture - Final 08/28/23 23:20 Stool - Final Laboratory WBC 4.2 X10^3/uL (3.6-10.0) 08/31/23 04:25 RBC 3.33 X10^6/uL (3.5-5.4) L 08/31/23 04:25 Hgb 10.8 g/dL (12.0-16.0) L 08/31/23 04:25 Hct 31.5 % (36.0-47.0) L 08/31/23 04:25 MCV 94.6 fL (80.0-100.0) 08/31/23 04:25 MCH 32.3 pg (27.0-34.0) 08/31/23 04:25 MCHC 34.1 g/dL (33.0-35.0) 08/31/23 04:25 RDW 13.3 % (11.6-16.5) 08/31/23 04:25 Plt Count 176 X10^3/uL (150.0-450.0) 08/31/23 04:25 MPV 10.2 fL (7.4-11.0) 08/31/23 04:25 Neut % (Auto) 51.1 % (42.0-75.0) 08/31/23 04:25 Lymph % (Auto) 41.9 % (21.0-51.0) 08/31/23 04:25 [place] % (Auto) 6.0 % (0.0-13.0) 08/31/23 04:25 Eos % (Auto) 0.5 % (0.9-2.9) L 08/31/23 04:25 Baso % (Auto) 0.5 % (0.2-1.0) 08/31/23 04:25 Neut # (Auto) 2.2 x10^3/uL (2.2-4.8) 08/31/23 04:25 Lymph # (Auto) 1.8 X10^3/uL (1.3-2.9) 08/31/23 04:25 [place] # (Auto) 0.3 x10^3/uL (0.3-0.8) 08/31/23 04:25 Eos # (Auto) 0.0 x10^3/uL (0.0-0.2) 08/31/23 04:25 Baso # (Auto) 0.0 X10^3/uL (0.0-0.1) 08/31/23 04:25 Absolute Nucleated RBC 0.0 /100WBC 08/31/23 04:25 PT 20.0 SECONDS (11.8-14.3) 08/28/23 21:18 INR Target Range - 08/28/23 21:18 INR 1.74 (0.8-1.3) H 08/28/23 21:18 APTT 35.0 SECONDS (22.9-36.5) 08/28/23 21:18 PTT Comment - 08/28/23 21:18 Sodium 143 mmol/L (136-145) 08/31/23 04:25 Corrected Sodium TNP 08/31/23 04:25 Potassium 2.8 mmol/L (3.5-5.1) L* 08/31/23 04:25 Chloride 108 mmol/L (98-107) H 08/31/23 04:25 Carbon Dioxide 28.6 mmol/L (21-32) 08/31/23 04:25 BUN 9 mg/dL (7-18) 08/31/23 04:25 Creatinine 0.70 mg/dL (0.55-1.02) 08/31/23 04:25 Est GFR (MDRD) Af Amer > 60 (>60) 08/31/23 04:25 Est GFR (MDRD) Non-Af > 60 (>60) 08/31/23 04:25 Glucose 82 mg/dL (65-99) 08/31/23 04:25 Calcium 7.6 mg/dL (8.5-10.1) L 08/31/23 04:25 Corrected Calcium 9.4 mg/dL (8.5-10.1) 08/31/23 04:25 Magnesium 2.0 mg/dL (2.0-2.9) 08/30/23 05:05 Total Bilirubin 0.40 mg/dL (0.2-1.0) 08/31/23 04:25 AST 11 Units/L (15-37) L 08/31/23 04:25 ALT 9 Units/L (12-78) L 08/31/23 04:25 Alkaline Phosphatase 78 Units/L (46-116) 08/31/23 04:25 Total Protein 4.4 g/dL (6.4-8.2) L 08/31/23 04:25 Albumin 1.8 g/dL (3.4-5.0) L 08/31/23 04:25 Globulin 2.6 g/dL (2.5-4.5) 08/31/23 04:25 Albumin/Globulin Ratio 0.7 Ratio (1.1-2.1) L 08/31/23 04:25 Amylase 8 Units/L (25-115) L 08/28/23 21:18 Lipase 39 Units/L (73-393) L 08/28/23 21:18 Specimen Type Catherized urine 08/28/23 22:15 Urine Color [place] (YELLOW) 08/28/23 22:15 Urine Appearance Slightly hazy (CLEAR) 08/28/23 22:15 Urine pH 6.0 (5.0 - 8.0) 08/28/23 22:15 Ur Specific [place] 1.020 (1.000-1.030) 08/28/23 22:15 Urine Protein 2+ (NEGATIVE) 08/28/23 22:15 Urine Glucose (UA) Negative (NEGATIVE) 08/28/23 22:15 Urine Ketones Negative (NEGATIVE) 08/28/23 22:15 Urine Blood 5+ (NEGATIVE) 08/28/23 22:15 Urine Nitrite Negative (NEGATIVE) 08/28/23 22:15 Urine Bilirubin Negative (NEGATIVE) 08/28/23 22:15 Urine Urobilinogen Normal (NORMAL) 08/28/23 22:15 Ur Leukocyte Esterase 1+ (NEGATIVE) 08/28/23 22:15 Urine RBC Tntc /HPF (0-3) A 08/28/23 22:15 Urine WBC 0-2 /HPF (0-5) 08/28/23 22:15 Ur Squamous Epith Cells Rare /HPF (NEGATIVE) 08/28/23 22:15 Urine Bacteria Trace /HPF (NEGATIVE) 08/28/23 22:15 Ur Culture Indicated? No/not indicated 08/28/23 22:15 Stl Occult Blood (IFOB) Positive (NEGATIVE) A 08/28/23 23:20 Stool for White Cells Positive (NEGATIVE) A 08/28/23 23:20 Stl C. diff Tox B Gene Positive (NEGATIVE) A 08/30/23 09:35 Stl C. diff [id number] Presumptive negative (NEGATIVE) 08/30/23 09:35 C. difficile Toxin A&B Negative (NEGATIVE) 08/30/23 09:35 SARS-CoV-2 (PCR) Negative (NEGATIVE) 08/28/23 22:15 Cryptosporid parvum Ag Negative (NEGATIVE) 08/28/23 23:20 Giardia lamblia Ag Negative (NEGATIVE) 08/28/23 23:20 Influenza Type A (PCR) Negative (NEGATIVE) 08/28/23 22:15 Influenza Type B (PCR) Negative (NEGATIVE) 08/28/23 22:15 RSV (PCR) Negative (NEGATIVE) 08/28/23 22:15 - Plan (1) Proctitis Status: Acute Plan: NORMAL SALINE WITH POTASSIUM AT 50 ML/HR, ZOSYN 3.375G IV TID, FLAGYL 500MG Q8H, ZOFRAN 4MG IV Q6H PRN, PROTONIX 40MG IV BID, MORPHINE 2MG IV Q6H PRN. CONSULT GENERAL SURGERY, RESUME HOME MEDS (2) Colitis Status: Acute (3) GI bleed Status: Acute Qualifiers: GI bleed type/associated pathology: unspecified gastrointestinal hemorrhage type Qualified Code(s): K92.2 - Gastrointestinal hemorrhage, unspecified (4) Abdominal pain Status: Acute Qualifiers: Abdominal location: generalized Qualified Code(s): R10.84 - Generalized abdominal pain (5) Nausea Status: Acute (6) HTN (hypertension) Status: Chronic Qualifiers: Hypertension type: primary hypertension Qualified Code(s): I10 - Essential (primary) hypertension Plan: MONITOR (7) Dementia Status: Chronic Qualifiers: Dementia type: unspecified type Dementia severity: unspecified severity Dementia behavioral or psychological symptom: unspecified whether behavioral, psychotic, or mood disturbance or anxiety Qualified Code(s): F03.90 - Unspecified dementia, unspecified severity, without behavioral disturbance, psy chotic disturbance, mood disturbance, and anxiety Plan: RESUME ARICEPT (8) GERD (gastroesophageal reflux disease) Status: Chronic Qualifiers: Esophagitis presence: esophagitis presence not specified Qualified Code(s): K21.9 - Gastro-esophageal reflux disease without esophagitis Plan: CONTINUE PROTONIX (9) Dyslipidemia Status: Chronic Plan: RESUME LIPITOR
[2023-08-31] MEDS ORDERED: BUTT CREAM (COMPOUND) TOP PRN (14:15)
[2023-08-31] MEDS: LIPITOR TAB 10 MG PO SCH (20:23)
[2023-08-31] MEDS: PERCOCET TAB 5/325 MG PO PRN (20:29)
[2023-09-01] MEDS: NS + KCL 20 MEQ/L 1,000 ML IV SCH (00:21)
[2023-09-01] MEDS: FLAGYL TAB 500 MG PO SCH ×2 (01:51→09:38)
[2023-09-01] MEDS: BENTYL CAP 10 MG PO SCH (05:18)
[2023-09-01] MEDS: ZOSYN VIAL 3.375 GRAMS 3.375 G in NS 100 ML IV 100 ML IV SCH (05:18)
[2023-09-01] MEDS: BUSPAR PO SCH (05:18)
[2023-09-01 05:25] LABS: EOSINOPHILS # (AUTO) 0.1 x10^3/uL (0.0-0.2); EOSINOPHILS % (AUTO) 1.8 % (0.9-2.9); HEMATOCRIT 35.8 % (36.0-47.0); HEMOGLOBIN 12.1 g/dL (12.0-16.0); LYMPHOCYTES # (AUTO) 2.1 X10^3/uL (1.3-2.9); LYMPHOCYTES % (AUTO) 46.8 % (21.0-51.0); MEAN CORPUSCULAR HEMOGLOBIN 32.1 pg (27.0-34.0); MEAN CORPUSCULAR HGB CONC 33.7 g/dL (33.0-35.0); MEAN CORPUSCULAR VOLUME 95.3 fL (80.0-100.0); MEAN PLATELET VOLUME 10.1 fL (7.4-11.0); MONOCYTES # (AUTO) 0.3 x10^3/uL (0.3-0.8); MONOCYTES % (AUTO) 6.3 % (0.0-13.0); NEUTROPHILS % (AUTO) 44.1 % (42.0-75.0); PLATELET COUNT 199 X10^3/uL (150.0-450.0); RED BLOOD COUNT 3.76 X10^6/uL (3.5-5.4); RED CELL DISTRIBUTION WIDTH 13.3 % (11.6-16.5); WHITE BLOOD COUNT 4.5 X10^3/uL (3.6-10.0)
[2023-09-01 05:41] LABS: ALANINE AMINOTRANSFERASE 8 Units/L (12-78); ALKALINE PHOSPHATASE 82 Units/L (46-116); ASPARTATE AMINO TRANSFERASE 13 Units/L (15-37); BLOOD UREA NITROGEN 8 mg/dL (7-18); CARBON DIOXIDE 26.1 mmol/L (21-32); CHLORIDE 111 mmol/L (98-107); COR CA(FOR HYPOALB) 9.6 mg/dL (8.5-10.1); GLUCOSE 81 mg/dL (65-99); SODIUM 143 mmol/L (136-145); TOTAL PROTEIN 4.9 g/dL (6.4-8.2); eGFR NON BLACK RACES > 60 (>60)
[2023-09-01 08:34] VITALS: TEMP 98.3
[2023-09-01] MEDS: PROTONIX INJ 40 MG VIAL IVP SCH (09:37)
[2023-09-01] MEDS: WELLBUTRIN XL 150 MG (DAILY) PO SCH (09:38)
[2023-09-01] MEDS: OXYBUTYNIN CHLORIDE ER PO SCH (09:38)
[2023-09-01] MEDS: ARICEPT TAB 5 MG PO SCH (09:38)
[2023-09-01 11:25] VITALS: BP 145/67; PULSE 98; RESP 24; O2SAT 93
== END 2023-09-01 12:10 | disposition home health service (06) | DRG 694 ==
LOC: ER 20:19 → ICU 20:19 → OBSVTOIN 08-29 01:11 → ICU 08-29 01:35
PROVIDERS: ADMIT Obstetrics & Gynecology Obstetrics; ATTEND Internal Medicine
DX: I10 Essential (primary) hypertension; K59.09 Other constipation; R10.84 Generalized abdominal pain; K21.9 Gastro-esophageal reflux disease without esophagitis; F41.8 Other specified anxiety disorders; A04.72 Enterocolitis due to Clostridium difficile, not specified as recurrent; F03.90 Unspecified dementia, unspecified severity, without behavioral disturbance, psychotic disturbance, mood disturbance, and anxiety; K62.89 Other specified diseases of anus and rectum; N13.2 Hydronephrosis with renal and ureteral calculous obstruction; E78.5 Hyperlipidemia, unspecified; K57.30 Diverticulosis of large intestine without perforation or abscess without bleeding; Z20.822 Contact with and (suspected) exposure to COVID-19